=== PATIENT | male | born 1985 | race Caucasian/White ===

== ENCOUNTER 2018-04-01 19:42 | Emergency (ER) | payer OTHER ==
[~2018-04-01] VITALS: Ht 165.1 cm; Wt 83.9 kg
[2018-04-01] MEDS ORDERED: KEPPRA500 MG (20:08)
== END 2018-04-02 01:43 | disposition home or self-care (01) ==
LOC: ER 19:42
DX: S00.83XA Contusion of other part of head, initial encounter (principal); V49.9XXA Car occupant (driver) (passenger) injured in unspecified traffic accident, initial encounter; Y93.89 Activity, other specified; Y92.488 Other paved roadways as the place of occurrence of the external cause; Y99.8 Other external cause status; G40.802 Other epilepsy, not intractable, without status epilepticus